=== PATIENT | female | born 1935 | race Caucasian/White ===

== ENCOUNTER 2017-06-06 23:28 | Inpatient (IN) ==
[2017-06-06] MEDS ORDERED: Albuterol 2.5 MG/3 ML NEBULIZER IH ONE (23:32)
[2017-06-06] MEDS ORDERED: methylPREDNISolone 125 MG/2 ML VIAL IVP ONE (23:32)
[2017-06-06] MEDS ORDERED: Ipratropium/Albuterol Neb 3 ML IH ONE (23:32)
--- NOTE | 2017-06-06 23:36 | Emergency Department Note ---
Disposition Clinical Impression: COPD exacerbation Pneumonia Qualifiers: Pneumonia type: due to unspecified organism Laterality: right Lung location: lower lobe of lung Qualified Code(s): J18.1 - Lobar pneumonia, unspecified organism Disposition: Admitted As Inpatient Condition: Good Time of Disposition: 00:43 SOB HPI - General Chief Complaint: ED Shortness of Breath/Dyspnea Stated Complaint: CANDY Time Seen by Provider: 06/06/17 23:30 Source: patient Mode of arrival: EMS Limitations: no limitations Nursing Notes Reviewed: Yes Vital Signs Reviewed: Yes - History of Present Illness 82-year-old white female presents via EMS with shortness of breath. She states she has been sick for "a couple weeks". She has had a cough productive of yellow sputum. She has had some wheezing. She states it became worse this evening. She has an albuterol inhaler that she uses. Her O2 saturation was 96 % on squad arrival at the scene. She was given albuterol nebulizer in route. She denies chest pain. She denies fever. No leg swelling or calf pain. Pt Subjective Complaint: shortness of breath, cough Onset (ago): week(s) ("A couple") Context: recent illness Severity: moderate Consistency/Duration: constant Improves with: bronchodilators Worsens with: coughing Known history of: COPD Associated symptoms: Reports: denies other symptoms Treatment prior to arrival: bronchodilator Cough present: Yes Cough Description: Involuntary Cough Frequency: Intermittent Sputum production: Yes Sputum Amount: Moderate Sputum Color: Yellow - Related Data Home oxygen amount: none Home Medications Medication Instructions Recorded Confirmed Albuterol Sulfate [Albuterol 2 puff IH QID PRN 06/06/17 06/06/17 Inhaler] Levothyroxine [Synthroid] 125 mcg PO DAILY 06/06/17 06/06/17 Amitriptyline [Elavil] 100 mg PO HS 06/07/17 06/07/17 Allergies Allergy/AdvReac Type Severity Reaction Status Date / Time Cortisone AdvReac Anaphylaxis Verified 06/06/17 23:31 All systems ED: reviewed and negative except as stated. Constitutional: Denies: fever, chills Eyes: Denies: eye discharge ENT ED: Denies: ear pain, throat pain Cardiovascular: Denies: chest pain, palpitations Respiratory: Reports: cough, dyspnea, wheezes, sputum production Gastrointestinal: Denies: abdominal pain, nausea, vomiting Genitourinary: Denies: urgency, dysuria, frequency Musculoskeletal: Denies: back pain Integumentary: Denies: rash Neurological: Denies: weakness, numbness, paresthesias Past Medical History - Past Medical History Attestation: Yes The following information was validated with the patient. Source: patient Medical history: Reports: COPD Surgical history: Reports: no surgical history Psychiatric history: Reports: no psych history - Social History Smoking Status: Current every day smoker Packs per day: 1 Alcohol use: Reports: none Drug use: Reports: none Physical Exam - General Limitations: no limitations General appearance: alert, in no apparent distress - Head Head exam: atraumatic, normocephalic - Eye Eye exam: Present: PERRL, EOMI. Absent: scleral icterus, conjunctival injection - ENT ENT exam: normal oropharynx, mucous membranes moist, TM's normal bilaterally - Neck Neck exam: Present: normal inspection, full ROM, trachea midline. Absent: tenderness, lymphadenopathy, thyromegaly - Respiratory Respiratory exam: Present: wheezes (Mild bilateral expiratory), prolonged expiratory phase, other (Scattered rhonchi bilaterally. Speaks in full sentences.). Absent: respiratory distress, accessory muscle use - Cardiovascular Cardiovascular exam: Present: regular rate, normal rhythm, normal heart sounds - Abdominal Exam Abdominal exam: Present: soft, Non-Tender, normal bowel sounds. Absent: organomegaly, mass - Extremities Exam Extremities exam: Present: normal inspection, full ROM, normal capillary refill. Absent: tenderness, pedal edema, calf tenderness - Neurological Exam Neurological exam: Present: alert, oriented X3. Absent: motor sensory deficit - Psychiatric Psychiatric exam: Present: normal affect, normal mood - Skin Skin exam: Present: warm, dry, intact, normal color. Absent: cyanosis, diaphoresis Course - Reevaluation(s) Reevaluation #1: Medically feels a little better after nebulizers. Her O2 saturations are around 89-90% on room air at this time. She was started on 2 L of oxygen. I have ordered blood cultures and IV Rocephin and azithromycin. She has some atelectasis versus infiltrate in her right base. She will be covered for pneumonia. Time: 00:33 Reevaluation #2: Discussed with Dr. Parrish. Accepts patient for admission to Telemetry. Patient and daughter agreeable with treatment plan. Time: 00:42 Vital Signs Temperature 98.0 F 06/06/17 23:33 Pulse Rate 87 06/06/17 23:33 Respiratory Rate 20 06/06/17 23:33 Blood Pressure 183/125 06/06/17 23:33 O2 Sat by Pulse Oximetry 92 06/06/17 23:33 Temperature 98.5 F 06/07/17 01:35 Pulse Rate 101 06/07/17 01:35 Respiratory Rate 20 06/07/17 01:35 Blood Pressure 162/80 06/07/17 01:35 O2 Sat by Pulse Oximetry 93 06/07/17 01:35 Oxygen Delivery Oxygen Delivery Nasal Cannula Shortness of Breath/Dyspnea - MDM Narrative Medical decision making narrative: She has some changes in the right lower lobe which likely represent pneumonia. Her O2 saturations are low at 89-90%, she has significant bronchospasm. She is improved with nebulizers. She was given Solu-Medrol. She would benefit from hospitalization for further treatment. This was discussed with the patient and her daughter. They are agreeable. I spoke with the hospitalist, Dr. Parrish, he has accepted the patient for admission. Blood cultures were drawn prior to giving azithromycin and Rocephin. Her lactic acid is not elevated. - Differential Diagnosis Likely: acute exacerbation of chronic obstructive airways disease, congestive heart failure, pneumonia, asthma with exacerbation, pneumothorax, arrhythmia - Lab Data Lab results reviewed: Yes I reviewed the patient's lab results. Result diagrams: 06/06/17 23:51 06/06/17 23:51 Lab Results 06/06/17 06/06/17 06/06/17 Range/Units 23:51 23:51 23:51 WBC 11.8 H (4.3-11.1) K/mcL RBC 4.08 (3.82-4.97) M/mcL Hgb 11.1 L (11.5-15.4) g/dL Hct 35.4 (35.3-44.9) % MCV 86.8 (83.0-100.0) fL MCH 27.2 L (28.0-33.3) pg MCHC 31.4 L (31.6-35.5) g/dL RDW 14.3 (11.5-14.5) % Plt Count 291 (140-400) K/mcL MPV 9.5 (9.4-12.4) fL Immature Gran % 0.5 (0-4) % Seg Neutrophils % 74.6 % Lymphocytes % 15.7 % Monocytes % 7.5 % Eosinophils % 1.3 % Basophils % 0.4 % Neutrophils # 8.8 (1.6-8.9) K/mcL Lymphocytes # 1.9 (0.6-4.6) K/mcL Monocytes # 0.9 (0.0-1.3) K/mcL Eosinophils # 0.2 (0.0-0.6) K/mcL Basophils # 0.1 (0.0-0.2) K/mcL Sodium 139 (136-145) mEq/L Potassium 3.8 (3.5-4.5) mEq/L Chloride 100 (98-109) mEq/L Carbon Dioxide 30 H (19-29) mEq/L BUN 17 (7-20) mg/dL Creatinine 0.96 (0.57-1.11) mg/dL Est GFR ( Amer) > 60 (> 60) Est GFR (Non-Af Amer) 56 L (> 60) BUN/Creatinine Ratio 18 (6-26) Glucose 139 H (70-99) mg/dL Calculated Osmolality 292 (280-300) Lactic Acid 1.1 (0.5-2.2) mmol/L Calcium 9.5 (8.6-10.8) mg/dL Total Bilirubin 0.3 (0.2-1.2) mg/dL AST 15 (5-34) Units/L ALT 13 (0-55) Units/L Alkaline Phosphatase 122 (38-126) Units/L Troponin I (0-0.03) ng/mL B-Natriuretic Peptide (0-100) pg/mL Serum Total Protein 6.6 (6.0-8.3) g/dL Albumin 3.1 L (3.5-5.0) g/dL Globulin 3.5 (2.4-3.5) g/dL Albumin/Globulin Ratio 0.9 L (1.1-2.2) 06/06/17 06/06/17 Range/Units 23:51 23:51 WBC (4.3-11.1) K/mcL RBC (3.82-4.97) M/mcL Hgb (11.5-15.4) g/dL Hct (35.3-44.9) % MCV (83.0-100.0) fL MCH (28.0-33.3) pg MCHC (31.6-35.5) g/dL RDW (11.5-14.5) % Plt Count (140-400) K/mcL MPV (9.4-12.4) fL Immature Gran % (0-4) % Seg Neutrophils % % Lymphocytes % % Monocytes % % Eosinophils % % Basophils % % Neutrophils # (1.6-8.9) K/mcL Lymphocytes # (0.6-4.6) K/mcL Monocytes # (0.0-1.3) K/mcL Eosinophils # (0.0-0.6) K/mcL Basophils # (0.0-0.2) K/mcL Sodium (136-145) mEq/L Potassium (3.5-4.5) mEq/L Chloride (98-109) mEq/L Carbon Dioxide (19-29) mEq/L BUN (7-20) mg/dL Creatinine (0.57-1.11) mg/dL Est GFR ( Amer) (> 60) Est GFR (Non-Af Amer) (> 60) BUN/Creatinine Ratio (6-26) Glucose (70-99) mg/dL Calculated Osmolality (280-300) Lactic Acid (0.5-2.2) mmol/L Calcium (8.6-10.8) mg/dL Total Bilirubin (0.2-1.2) mg/dL AST (5-34) Units/L ALT (0-55) Units/L Alkaline Phosphatase (38-126) Units/L Troponin I 0.01 (0-0.03) ng/mL B-Natriuretic Peptide 246 H (0-100) pg/mL Serum Total Protein (6.0-8.3) g/dL Albumin (3.5-5.0) g/dL Globulin (2.4-3.5) g/dL Albumin/Globulin Ratio (1.1-2.2) - Radiology Data Radiology results reviewed: Yes I reviewed the patient's radiology results. Impressions Chest X-Ray 06/06/17 23:32 IMPRESSION: 1. Right basilar atelectasis versus pneumonia. 2. Possible right paratracheal adenopathy. Routine contrast-enhanced chest CT is recommended for further evaluation. D/ / Price Valentine MD / Price Valentine MD Interpreting Provider: Price Valentine MD - EKG Data EKG attestation: Yes I reviewed and interpreted this EKG. EKG results narrative: Sinus rhythm, rate of 94, no acute ST-T wave changes. Rhythm strip shows sinus rhythm with a rate of 94, UT interval 191 ms, QRS 100 ms with no other ectopy as interpreted by me. No EKG available for comparison.
[2017-06-06 23:58] LABS: Basophils # 0.1 K/mcL (0.0-0.2); Basophils % 0.4 %; Eosinophils # 0.2 K/mcL (0.0-0.6); Eosinophils % 1.3 %; Hematocrit 35.4 % (35.3-44.9); Hemoglobin 11.1 g/dL (11.5-15.4); Immature Granulocytes % 0.5 % (0-4); Lymphocytes # 1.9 K/mcL (0.6-4.6); Lymphocytes % 15.7 %; Mean Corpuscular HGB Conc 31.4 g/dL (31.6-35.5); Mean Corpuscular Hemoglobin 27.2 pg (28.0-33.3); Mean Corpuscular Volume 86.8 fL (83.0-100.0); Mean Platelet Volume 9.5 fL (9.4-12.4); Monocytes # 0.9 K/mcL (0.0-1.3); Monocytes % 7.5 %; Neutrophils # 8.8 K/mcL (1.6-8.9); Platelet Count 291 K/mcL (140-400); Red Blood Count 4.08 M/mcL (3.82-4.97); Red Cell Distribution Width 14.3 % (11.5-14.5); Segmented Neutrophils % 74.6 %
[2017-06-07 00:17] LABS: Alanine Aminotransferase 13 Units/L (0-55); Albumin 3.1 g/dL (3.5-5.0); Albumin/Globulin Ratio 0.9 (1.1-2.2); Alkaline Phosphatase 122 Units/L (38-126); Aspartate Amino Transferase 15 Units/L (5-34); BUN/Creatinine Ratio 18 (6-26); Bilirubin,Total 0.3 mg/dL (0.2-1.2); Blood Urea Nitrogen 17 mg/dL (7-20); Calcium 9.5 mg/dL (8.6-10.8); Carbon Dioxide 30 mEq/L (19-29); Chloride 100 mEq/L (98-109); Globulin 3.5 g/dL (2.4-3.5); Glucose 139 mg/dL (70-99); Osmolality,Calculated 292 (280-300); Potassium 3.8 mEq/L (3.5-4.5); Sodium 139 mEq/L (136-145); Total Protein 6.6 g/dL (6.0-8.3); eGFR For African Americans > 60 (> 60); eGFR For Non-African Americans 56 (> 60)
[2017-06-07] MEDS ORDERED: Azithromycin 500 MG in D5% in Water 250 ML IVPB ONE (00:29)
[2017-06-07] MEDS ORDERED: Acetaminophen 325 MG TABLET PO PRN (01:23)
[2017-06-07] MEDS ORDERED: Ondansetron ODT 4 MG TAB.RAPDIS SL PRN (01:23)
[2017-06-07] MEDS ORDERED: Naloxone 0.4 MG/ML INJ IVP PRN (01:23)
[2017-06-07] MEDS: Ipratropium/Albuterol Neb 3 ML IH SCH ×3 (02:48→12:50)
[2017-06-07] MEDS: MethylPREDNISolone 40 MG/ML VIAL IVP SCH ×3 (04:49→17:28)
[2017-06-07] MEDS: *HR* Enoxaparin 30 MG/0.3 ML SYRINGE SQ SCH (05:15)
[2017-06-07] MEDS ORDERED: Ibuprofen 800 MG TABLET PO ONE (12:47)
--- NOTE | 2017-06-07 15:55 | Internal Med History&Physical ---
Date of Encounter: 06/07/17 Time of Encounter: 15:20 Assessment and Plan (1) Pneumonia Current visit: Yes Status: Acute She has been started on Rocephin and Zithromax. Lactobacillus will be added. Chest CT will be ordered for further evaluation. Qualifiers: Pneumonia type: due to unspecified organism Laterality: right Lung location: lower lobe of lung Qualified Code(s): J18.1 - Lobar pneumonia, unspecified organism (2) Azotemia Current visit: Yes Status: Acute Duration unknown. Will hold NSAIDs and monitor renal indices. (3) Anemia Current visit: Yes Status: Acute We will hold NSAIDs. We will order anemia testing in a.m. Qualifiers: Anemia type: unspecified type Qualified Code(s): D64.9 - Anemia, unspecified (4) Hypothyroidism Current visit: Yes Status: Chronic We will check TSH in a.m. Qualifiers: Hypothyroidism type: unspecified Qualified Code(s): E03.9 - Hypothyroidism , unspecified (5) Weight loss Current visit: Yes Status: Acute We will check TSH and ordered chest CT. (6) COPD exacerbation Current visit: Yes Status: Acute We will start Spiriva and Symbicort. Continue pneumonia treatment. Will order chest CT. Internal Medicine - H&P: HPI Chief complaint: Dyspnea Admitted From: Home Plans for Post Hospital Care: Home History of present illness: Ms. Barriga is a 82 year old female who came to emergency room stating she had two-week history of increasing dyspnea. She reports cough with yellow sputum. There has been hemoptysis noted at times. When she was not improving she decided to come to emergency room. She was evaluated and felt to have exacerbation of COPD and was admitted to [facility] floor for ongoing care needs. Her respiratory history is significant for having smoked since age 15 up to 4 packs per day. She has not had PFTs has not been diagnosed with chronic lung disease. She does not use home oxygen and has not been tested for sleep apnea. Past Med Surg Social Fam HX - Past Medical History Medical history: COPD Psychiatric history: no psych history - Past Surgical History Surgical History: no surgical history - Social History Smoking Status: Current every day smoker Packs per day: 1 Smokeless Tobacco Status: No Alcohol use: none Drug use: none Internal Medicine - H&P: Meds Albuterol Sulfate [Albuterol Inhaler] 2 puff IH QID PRN 06/06/17 [History] Levothyroxine [Synthroid] 125 mcg PO DAILY 06/06/17 [History] Amitriptyline [Elavil] 100 mg PO HS 06/07/17 [History] 3 Allergy/AdvReac Type Severity Reaction Status Date / Time Cortisone AdvReac Anaphylaxis Verified 06/06/17 23:31 All Systems PM: A 10-system review of systems was performed and is negative for pertinent findings except as documented above in the HPI. Review of systems: Gen.: She states her weight has decreased approximately 20 pounds in the past 6 months, unintentional Cardiovascular: She has history of hypertension but no known [place] heart failure angina DVT or pulmonary embolus. She reports she had a "blood clot in her ankle " following trauma several years ago. Respiratory: As per history of present illness GI: She denies disorders of her liver gallbladder or exocrine pancreas : She has had intermittent hematuria over the last 3 years. She denies chronic kidney disease other kidney or bladder disorders Neurologic: She had a pituitary tumor over 30 years ago without treatment. She had bilateral cataract surgery approximately one week ago. She has left macular degeneration. She denies large distribution strokes or seizures. Endocrine: She has hypothyroidism denies diabetes or hyperlipidemia Hematology/oncology: She was unaware that she had mild anemia on emergency room labs. She reports taking approximately 12 OTC Advil daily for the past few days for her right arm pain. She denies internal malignancies Psychiatric: She has depression but no significant anxiety other mental health issues. [place] skeletal: She reports pain in her right arm from her elbow to her shoulder. She has been using OTC Advil as per above. She denies gout or other bone joint or muscle disorders. - Constitutional Vitals: Temp Pulse Resp BP Pulse Ox 98.5 F 94 18 150/76 92 06/07/17 07:42 06/07/17 07:42 06/07/17 12:53 06/07/17 07:42 06/07/17 12:53 Exam: Gen.: She is a well-developed well-nourished female who appears in no significant distress HEENT: Head is atraumatic and normocephalic. Eyes: EOMI. There is no scleral icterus. Mouth: Mucosa is moist. Neck: Supple and nontender. There is no thyromegaly or adenopathy noted. Heart: Regular with occasional ectopic beat heard. No murmurs or gallops are heard. Lungs: No wheezes or crackles are heard. She has diminished breath sounds diffusely. There is no egophony Abdomen: Soft and nontender. No masses or guarding are noted. Extremities: There is no cyanosis edema clubbing noted. Dorsalis pedis and posttibial pulses are 1-2 over 2 bilaterally. Neurologic: Mental status: She is talkative and a good historian. Cranial nerves: Smile is symmetric. Forehead wrinkles bilaterally. Tongue protrudes midline. EOMI. Motor: There is no pronator drift. Cerebellar: Finger to nose is intact bilaterally. Skin: Warm and dry Internal Med - H&P Results - Labs CBC & Chem 7: 06/06/17 23:51 06/06/17 23:51
[2017-06-07] MEDS: Metoprolol XL (24 HR) Succ 25 MG TAB.ER.24H PO SCH (17:30)
[2017-06-07] MEDS ORDERED: Acetaminophen 325 MG TABLET PO SCH (18:00)
[2017-06-07] MEDS: Budesonide/Formoterol 160/4.5 MDI IH SCH (21:20)
[2017-06-07 21:35] LABS: Bilirubin,Urine Small (Negative); Blood,Urine Large (Negative); Clarity,Urine Cloudy (Clear); Color,Urine Amber (Yellow); Glucose,Urine (UA) Normal (Normal); Ketones,Urine Trace mg/dL (Negative); Leukocyte Esterase,Urine Negative (Negative); Nitrite,Urine Negative (Negative); Protein,Urine 100 mg/dL (Neg-Trace); Urobilinogen,Urine Normal (Normal)
[2017-06-07] MEDS: Lactobacillus 1 EACH CAP.SPRINK PO SCH (21:41)
[2017-06-07] MEDS: traMADol 50 MG TABLET PO PRN (23:58)
[2017-06-08] MEDS: Azithromycin 500 MG in D5% in Water 250 ML IVPB SCH (00:58)
[2017-06-08] MEDS: MethylPREDNISolone 40 MG/ML VIAL IVP SCH ×3 (00:58→18:12)
[2017-06-08] MEDS: *HR* Enoxaparin 30 MG/0.3 ML SYRINGE SQ SCH (05:48)
[2017-06-08 06:47] LABS: Hematocrit 35.6 % (35.3-44.9); Hemoglobin 10.8 g/dL (11.5-15.4); Immature Granulocytes % 0.3 % (0-4); Lymphocytes # 0.8 K/mcL (0.6-4.6); Lymphocytes % 6.8 %; Mean Corpuscular HGB Conc 30.3 g/dL (31.6-35.5); Mean Corpuscular Hemoglobin 26.9 pg (28.0-33.3); Mean Corpuscular Volume 88.8 fL (83.0-100.0); Mean Platelet Volume 10.3 fL (9.4-12.4); Monocytes # 0.2 K/mcL (0.0-1.3); Neutrophils # 10.2 K/mcL (1.6-8.9); Platelet Count 311 K/mcL (140-400); Red Blood Count 4.01 M/mcL (3.82-4.97); Red Cell Distribution Width 14.2 % (11.5-14.5); Segmented Neutrophils % 90.9 %
[2017-06-08] MEDS: Budesonide/Formoterol 160/4.5 MDI IH SCH ×2 (09:17→21:51)
[2017-06-08] MEDS: Tiotropium 18 MCG inhalation IH SCH (09:17)
[2017-06-08 10:39] LABS: % Iron Saturation 7 % (15-50); Iron 26 mcg/dL (50-170); Transferrin 250 mg/dL (180-382)
[2017-06-08] MEDS: Lactobacillus 1 EACH CAP.SPRINK PO SCH ×2 (10:43→22:26)
[2017-06-08] MEDS: Metoprolol XL (24 HR) Succ 25 MG TAB.ER.24H PO SCH (10:50)
[2017-06-08 11:01] LABS: Ferritin 28 ng/ml (5-204)
[2017-06-08 11:12] LABS: Folate 11.4 ng/mL (7.0-31.4)
--- NOTE | 2017-06-08 12:02 | Electrocardiograph Report ---
[address] [address] Test Date: 2017-06-06 Pat Name: Nisha Barriga Department: [id number] Room: [facility] Gender: F Bridge Repairer: Waylon : 1935 Requested By: Remi Anderson Order Number: [id number] Reading MD: Elijah Santizo MD Measurements Intervals [place] Rate: 94 P: 87 MO: 191 QRS: 28 QRSD: 100 T: 50 QT: 345 QTc: 396 Interpretive Statements SINUS RHYTHM Poor R wave progression Electronically Signed On 06-08-2017 12:00:24 EDT by Elijah Santizo MD
--- NOTE | 2017-06-08 12:18 | Internal Med Progress Note ---
Date of Encounter: 06/08/17 Time of Encounter: 09:20 - Assessment and plan (1) Pneumonia Current Visit: Yes Status: Acute Assessment and plan: June 08. Continue Rocephin and Zithromax with lactobacillus. Qualifiers: Pneumonia type: due to unspecified organism Laterality: right Lung location: lower lobe of lung Qualified Code(s): J18.1 - Lobar pneumonia, unspecified organism (2) Mass of right lung Current Visit: Yes Status: Acute Assessment and plan: June 08. I discussed at length with her and her family the findings of the CT showing a right lung mass with probable extension/erosion into T3. There is also possible esophageal encroachment. She adamantly refused to consider transfer to a gift basket packer/oncologist stating she would not have surgery and would not take chemotherapy etc. for treatment. She stated she was content to and did not want to be a burden to her family. Declined consideration for hospice. (3) Azotemia Current Visit: Yes Status: Acute Assessment and plan: June 08. Duration unknown. Will remain off NSAIDs. Recheck labs in a.m. (4) Anemia Current Visit: Yes Status: Acute Assessment and plan: June 08. Anemia testing consistent with iron and folic acid deficiency. Will order supplements. Qualifiers: Anemia type: unspecified type Qualified Code(s): D64.9 - Anemia, unspecified (5) Hypothyroidism Current Visit: Yes Status: Chronic Assessment and plan: June 08. TSH was slightly suppressed. We will decrease dose of Synthroid to 100 g daily. Qualifiers: Hypothyroidism type: unspecified Qualified Code(s): E03.9 - Hypothyroidism , unspecified (6) Weight loss Current Visit: Yes Status: Acute Assessment and plan: June 08. We will decreased TSH as per above. 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 (7) COPD exacerbation Current Visit: Yes Status: Acute Assessment and plan: June 08. Continue Spiriva, Symbicort and pneumonia treatment. - Subjective Interval history: June 08. She has no new complaints. She is still dyspneic and has pain in her back and right arm. - Constitutional Vitals: Temp Pulse Resp BP Pulse Ox 98.8 F 76 17 154/86 97 06/08/17 06:49 06/08/17 06:49 06/08/17 09:31 06/08/17 06:49 06/08/17 09:31 Exam: She is sitting on the side of the bed wearing oxygen. She appears slightly dyspneic at rest and more dyspneic when speaking. I reviewed her medications labs and CT report with her and her daughter. Internal Medicine: Result - Labs CBC & Chem 7: 06/08/17 05:18 06/06/17 23:51 Labs: Short CBC 06/08/17 Range/Units 05:18 WBC 11.2 H (4.3-11.1) K/mcL Hgb 10.8 L (11.5-15.4) g/dL Hct 35.6 (35.3-44.9) % Plt Count 311 (140-400) K/mcL Neutrophils # 10.2 H (1.6-8.9) K/mcL Urine 06/07/17 Range/Units 19:30 Urine Color Janell A (Yellow) Urine Clarity Cloudy A (Clear) Urine pH 6.0 (5.0-8.0) pH Units Ur Specific [place] 1.020 (1.010-1.025) Urine Protein 100 H (Neg-Trace) mg/dL Urine Glucose (UA) Normal (Normal) mg/dL - Impressions Impressions Chest CT 06/07/17 15:47 IMPRESSION: Large cavitary right upper lobe mass with invasion of the posterior mediastinum and T3 vertebral body. Tiny nodules in the left upper lobe almost certainly represent granulomas. Borderline sized precarinal lymph node D/ / Alfredo Bob MD / Alfredo Bob MD Interpreting Provider: Alfredo Bob MD - VTE Documentation of Mechanical Device: Intermittent pneumatic compression device Consult Discharge Plan - Plan Referrals: Brian Richards, GENARO [Primary Care Provider] - 1 week
[2017-06-08] MEDS: traMADol 50 MG TABLET PO PRN (12:57)
[2017-06-08] MEDS: *HR* OxyCODONE/APAP 5/325 TABLET PO PRN (22:26)
[2017-06-09] MEDS: Azithromycin 500 MG in D5% in Water 250 ML IVPB SCH (03:01)
[2017-06-09] MEDS: MethylPREDNISolone 40 MG/ML VIAL IVP SCH ×2 (03:01→11:27)
[2017-06-09 05:46] LABS: Basophils % 0.1 %; Hematocrit 33.3 % (35.3-44.9); Hemoglobin 10.3 g/dL (11.5-15.4); Immature Granulocytes % 0.7 % (0-4); Lymphocytes # 1.1 K/mcL (0.6-4.6); Lymphocytes % 7.9 %; Mean Corpuscular HGB Conc 30.9 g/dL (31.6-35.5); Mean Corpuscular Hemoglobin 27.2 pg (28.0-33.3); Mean Corpuscular Volume 87.9 fL (83.0-100.0); Mean Platelet Volume 9.8 fL (9.4-12.4); Monocytes # 0.8 K/mcL (0.0-1.3); Monocytes % 5.8 %; Platelet Count 332 K/mcL (140-400); Red Blood Count 3.79 M/mcL (3.82-4.97); Segmented Neutrophils % 85.5 %
[2017-06-09 05:48] LABS: Neutrophils # 11.5 K/mcL (1.6-8.9)
[2017-06-09 05:59] LABS: BUN/Creatinine Ratio 23 (6-26); Blood Urea Nitrogen 19 mg/dL (7-20); Carbon Dioxide 31 mEq/L (19-29); Chloride 99 mEq/L (98-109); Glucose 230 mg/dL (70-99); Osmolality,Calculated 294 (280-300); Potassium 4.4 mEq/L (3.5-4.5); Sodium 137 mEq/L (136-145); eGFR For African Americans > 60 (> 60); eGFR For Non-African Americans > 60 (> 60)
[2017-06-09] MEDS: Tiotropium 18 MCG inhalation IH SCH (07:39)
[2017-06-09] MEDS: Ascorbic Acid 500 MG TABLET PO SCH ×2 (08:54→09:15)
[2017-06-09] MEDS: Lactobacillus 1 EACH CAP.SPRINK PO SCH ×2 (08:55→20:15)
[2017-06-09] MEDS: Metoprolol XL (24 HR) Succ 25 MG TAB.ER.24H PO SCH (08:55)
[2017-06-09] MEDS: *HR* Enoxaparin 30 MG/0.3 ML SYRINGE SQ SCH (08:59)
[2017-06-09] MEDS: Budesonide/Formoterol 160/4.5 MDI IH SCH ×2 (10:45→20:01)
--- NOTE | 2017-06-09 12:32 | Internal Med Progress Note ---
Date of Encounter: 06/09/17 Time of Encounter: 12:25 - Assessment and plan (1) Pneumonia Current Visit: Yes Status: Acute Assessment and plan: June 08. Continue Rocephin and Zithromax with lactobacillus. Qualifiers: Pneumonia type: due to unspecified organism Laterality: right Lung location: lower lobe of lung Qualified Code(s): J18.1 - Lobar pneumonia, unspecified organism (2) Mass of right lung Current Visit: Yes Status: Acute Assessment and plan: June 08. I discussed at length with her and her family the findings of the CT showing a right lung mass with probable extension/erosion into T3. There is also possible esophageal encroachment. She adamantly refused to consider transfer to a physiatrist/oncologist stating she would not have surgery and would not take chemotherapy etc. for treatment. She stated she was content to and did not want to be a burden to her family. Declined consideration for hospice. (3) Azotemia Current Visit: Yes Status: Acute Assessment and plan: June 08. Duration unknown. Will remain off NSAIDs. Recheck labs in a.m. June 09. Resolved. Continue to monitor labs as needed. (4) Anemia Current Visit: Yes Status: Acute Assessment and plan: June 08. Anemia testing consistent with iron and folic acid deficiency. Will order supplements. June 09. Continue iron with vitamin C and folic acid. Qualifiers: Anemia type: unspecified type Qualified Code(s): D64.9 - Anemia, unspecified (5) Hypothyroidism Current Visit: Yes Status: Chronic Assessment and plan: June 08. TSH was slightly suppressed. We will decrease dose of Synthroid to 100 g daily. Qualifiers: Hypothyroidism type: unspecified Qualified Code(s): E03.9 - Hypothyroidism , unspecified (6) Weight loss Current Visit: Yes Status: Acute Assessment and plan: June 08. We will decrease TSH as per above. 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 (7) COPD exacerbation Current Visit: Yes Status: Acute Assessment and plan: June 08. Continue Spiriva, Symbicort and pneumonia treatment. June 09. We will discontinue Solu-Medrol. Continue other treatment as at present. - Subjective Interval history: June 08. She has no new complaints. She is still dyspneic and has pain in her back and right arm. June 09. She has no new complaints and feels better. - Constitutional Vitals: Temp Pulse Resp BP Pulse Ox 98.6 F 79 18 159/79 93 06/09/17 10:59 06/09/17 10:59 06/09/17 10:59 06/09/17 10:59 06/09/17 10:59 Exam: She is resting comfortably in bed and appears less dyspneic. Her lungs showed diminished breath sounds but less wheezing. I reviewed her medications and lab results. Internal Medicine: Result - Labs CBC & Chem 7: 06/09/17 05:15 06/09/17 05:15 Labs: Short CBC 06/09/17 Range/Units 05:15 WBC 13.4 H (4.3-11.1) K/mcL Hgb 10.3 L (11.5-15.4) g/dL Hct 33.3 L (35.3-44.9) % Plt Count 332 (140-400) K/mcL Neutrophils # 11.5 H (1.6-8.9) K/mcL BMP 06/09/17 05:15 Sodium 137 Potassium 4.4 Chloride 99 Carbon Dioxide 31 H BUN 19 Creatinine 0.81 Glucose 230 H Calcium 9.0 - VTE Documentation of Mechanical Device: Intermittent pneumatic compression device Consult Discharge Plan - Plan Referrals: Brian Richards CNP [Primary Care Provider] - 1 week
[2017-06-09] MEDS ORDERED: ALPRAZolam 0.25 MG TABLET PO PRN (12:34)
[2017-06-09] MEDS: *HR* OxyCODONE/APAP 5/325 TABLET PO PRN ×2 (12:59→20:14)
[2017-06-10] MEDS: Azithromycin 500 MG in D5% in Water 250 ML IVPB SCH (01:16)
[2017-06-10] MEDS: *HR* Enoxaparin 30 MG/0.3 ML SYRINGE SQ SCH (06:07)
[2017-06-10] MEDS: Ascorbic Acid 500 MG TABLET PO SCH ×2 (08:30→08:31)
[2017-06-10] MEDS: Tiotropium 18 MCG inhalation IH SCH (08:35)
[2017-06-10] MEDS: Lactobacillus 1 EACH CAP.SPRINK PO SCH ×2 (08:37→19:57)
[2017-06-10] MEDS: Metoprolol XL (24 HR) Succ 25 MG TAB.ER.24H PO SCH (08:37)
[2017-06-10] MEDS: Budesonide/Formoterol 160/4.5 MDI IH SCH ×2 (10:23→21:38)
[2017-06-10] MEDS: *HR* OxyCODONE/APAP 5/325 TABLET PO PRN ×2 (12:46→19:58)
--- NOTE | 2017-06-10 15:55 | Internal Med Progress Note ---
Date of Encounter: 06/10/17 Time of Encounter: 15:40 - Assessment and plan (1) Pneumonia Current Visit: Yes Status: Acute Assessment and plan: June 08. Continue Rocephin and Zithromax with lactobacillus. Qualifiers: Pneumonia type: due to unspecified organism Laterality: right Lung location: lower lobe of lung Qualified Code(s): J18.1 - Lobar pneumonia, unspecified organism (2) Mass of right lung Current Visit: Yes Status: Acute Assessment and plan: June 08. I discussed at length with her and her family the findings of the CT showing a right lung mass with probable extension/erosion into T3. There is also possible esophageal encroachment. She adamantly refused to consider transfer to a mixer tender/oncologist stating she would not have surgery and would not take chemotherapy etc. for treatment. She stated she was content to and did not want to be a burden to her family. Declined consideration for hospice. (3) Azotemia Current Visit: Yes Status: Acute Assessment and plan: June 08. Duration unknown. Will remain off NSAIDs. Recheck labs in a.m. June 09. Resolved. Continue to monitor labs as needed. (4) Anemia Current Visit: Yes Status: Acute Assessment and plan: June 08. Anemia testing consistent with iron and folic acid deficiency. Will order supplements. June 09. Continue iron with vitamin C and folic acid. June 10. Will recheck labs in a.m. Qualifiers: Anemia type: unspecified type Qualified Code(s): D64.9 - Anemia, unspecified (5) Hypothyroidism Current Visit: Yes Status: Chronic Assessment and plan: June 08. TSH was slightly suppressed. We will decrease dose of Synthroid to 100 g daily. Qualifiers: Hypothyroidism type: unspecified Qualified Code(s): E03.9 - Hypothyroidism , unspecified (6) Weight loss Current Visit: Yes Status: Acute Assessment and plan: June 08. We will decrease TSH as per above. 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 (7) COPD exacerbation Current Visit: Yes Status: Acute Assessment and plan: June 08. Continue Spiriva, Symbicort and pneumonia treatment. June 09. We will discontinue Solu-Medrol. Continue other treatment as at present. - Subjective Interval history: June 08. She has no new complaints. She is still dyspneic and has pain in her back and right arm. June 09. She has no new complaints and feels better. June 10. She has no new complaints. - Constitutional Vitals: Temp Pulse Resp BP Pulse Ox 99.0 F 83 14 136/73 95 06/10/17 10:00 06/10/17 11:15 06/10/17 11:15 06/10/17 11:15 06/10/17 11:15 Exam: She is resting comfortably in bed. Affect is bright and cheerful. Lungs show scattered rhonchi. Heart is regular without murmurs gallops or ectopics. Extremities show trace pitting edema. I reviewed her medications and lab results. I discussed her case with the licensed clinical social worker Internal Medicine: Result - Labs CBC & Chem 7: 06/09/17 05:15 06/09/17 05:15 - VTE Documentation of Mechanical Device: Intermittent pneumatic compression device Consult Discharge Plan - Plan Referrals: Brian Richards, GENARO [Primary Care Provider] - 1 week
[2017-06-10] MEDS: Cefuroxime PO 250 MG TABLET PO SCH (19:58)
[2017-06-10] MEDS: Azithromycin 250 MG TABLET PO SCH (19:58)
[2017-06-11 05:33] LABS: Basophils % 0.1 %; Eosinophils # 0.1 K/mcL (0.0-0.6); Eosinophils % 0.6 %; Hematocrit 37.9 % (35.3-44.9); Hemoglobin 11.7 g/dL (11.5-15.4); Immature Granulocytes % 0.5 % (0-4); Lymphocytes % 14.1 %; Mean Corpuscular HGB Conc 30.9 g/dL (31.6-35.5); Mean Corpuscular Hemoglobin 26.9 pg (28.0-33.3); Mean Corpuscular Volume 87.1 fL (83.0-100.0); Monocytes # 0.9 K/mcL (0.0-1.3); Monocytes % 6.5 %; Neutrophils # 10.9 K/mcL (1.6-8.9); Platelet Count 339 K/mcL (140-400); Red Blood Count 4.35 M/mcL (3.82-4.97); Red Cell Distribution Width 14.4 % (11.5-14.5); Segmented Neutrophils % 78.2 %
[2017-06-11 05:50] LABS: BUN/Creatinine Ratio 21 (6-26); Blood Urea Nitrogen 17 mg/dL (7-20); Calcium 9.3 mg/dL (8.6-10.8); Carbon Dioxide 35 mEq/L (19-29); Chloride 97 mEq/L (98-109); Glucose 159 mg/dL (70-99); Osmolality,Calculated 295 (280-300); Sodium 140 mEq/L (136-145); eGFR For African Americans > 60 (> 60); eGFR For Non-African Americans > 60 (> 60)
[2017-06-11] MEDS ORDERED: *HR* Enoxaparin 40 MG/0.4 ML SYRINGE SQ SCH (06:00)
[2017-06-11] MEDS: Cefuroxime PO 250 MG TABLET PO SCH ×2 (06:07→17:43)
[2017-06-11 07:27] VITALS: BP 148/73
[2017-06-11] MEDS: Lactobacillus 1 EACH CAP.SPRINK PO SCH (08:52)
[2017-06-11] MEDS: Ascorbic Acid 500 MG TABLET PO SCH (08:52)
[2017-06-11] MEDS: Azithromycin 250 MG TABLET PO SCH (08:52)
[2017-06-11] MEDS: Metoprolol XL (24 HR) Succ 25 MG TAB.ER.24H PO SCH (08:57)
[2017-06-11] MEDS: Budesonide/Formoterol 160/4.5 MDI IH SCH (10:18)
[2017-06-11] MEDS: Tiotropium 18 MCG inhalation IH SCH (10:19)
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
--- NOTE | 2017-06-11 12:03 | Physician Discharge Referral ---
Home Health/Hosp Referral Info Transfer to: Home Health Attending Provider: Francois Provider in Charge Post Discharge: PCP (Brian Richards CNP) - Diagnosis (1) Pneumonia Priority: Primary Status: Acute (2) Mass of right lung Priority: Secondary Status: Acute (3) Azotemia Priority: Secondary Status: Resolved (4) Anemia Priority: Secondary Status: Acute (5) Hypothyroidism Priority: Secondary Status: Chronic (6) Weight loss Priority: Secondary Status: Acute (7) COPD exacerbation Priority: Secondary Status: Acute - Respiratory Orders Oxygen / L per min (O2 at 2 L/m by nasal cannula to keep sat greater than 90%.) Smoking Cessation: Smoking cessation has been advised. For more information, call the [employer] Tobacco Quit Line at 9-994-NSGB-NOW. - Diet/Nutrition Diet/Nutrition Orders: Regular - Activity Activity Orders: Ambulate - Services Needed Following services are medically necessary services: Nursing, Home Health Aide, Physical Therapy, Occupational Therapy - Transfer Medications Prescriptions: Albuterol Neb [Proventil Neb] 2.5 mg IH Q4HR #20 vial.neb OxyCODONE/APAP 5/325 [Percocet 5/325 MG] 1 each PO Q4HR PRN #20 tablet PRN Reason: Pain Cefuroxime PO [Ceftin] 500 mg PO Q12HR #10 tablet Ascorbic Acid [Vitamin C] 500 mg PO DAILY #30 tablet Azithromycin [Zithromax] 250 mg PO DAILY #5 tablet Budesonide/Formoterol 160/4.5 [Symbicort 160/4.5] 2 puff IH BIDR #1 inhaler Ferrous Sulfate 325 mg PO DAILY #30 tablet Lactobacillus [Culturelle] 1 each PO BID #10 cap.sprink Levothyroxine [Synthroid] 100 mcg PO 0630 #30 tablet Metoprolol XL (24 HR) Succ [Toprol XL] 25 mg PO DAILY #30 tab.er.24h Tiotropium [Spiriva] 18 mcg IH DAILY@0700 #30 inh Home Medications: Albuterol Sulfate [Albuterol Inhaler] 2 puff IH QID PRN 06/06/17 [History] Amitriptyline [Elavil] 100 mg PO HS 06/07/17 [History] Albuterol Neb [Proventil Neb] 2.5 mg IH Q4HR #20 vial.neb 10/18/17 [Rx] Ascorbic Acid [Vitamin C] 500 mg PO DAILY #30 tablet 06/11/17 [Rx] Azithromycin [Zithromax] 250 mg PO DAILY #5 tablet 06/11/17 [Rx] Budesonide/Formoterol 160/4.5 [Symbicort 160/4.5] 2 puff IH BIDR #1 inhaler [Rx] Cefuroxime PO [Ceftin] 500 mg PO Q12HR #10 tablet 06/11/17 [Rx] Ferrous Sulfate 325 mg PO DAILY #30 tablet 06/11/17 [Rx] Lactobacillus [Culturelle] 1 each PO BID #10 cap.sprink 06/11/17 [Rx] Levothyroxine [Synthroid] 100 mcg PO 0630 #30 tablet 06/11/17 [Rx] Metoprolol XL (24 HR) Succ [Toprol XL] 25 mg PO DAILY #30 tab.er.24h 06/11/17 [ Rx] OxyCODONE/APAP 5/325 [Percocet 5/325 MG] 1 each PO Q4HR PRN #20 tablet 06/11/17 [Rx] Tiotropium [Spiriva] 18 mcg IH DAILY@0700 #30 inh 06/11/17 [Rx] Allergies/Adverse Reactions: 3 Allergy/AdvReac Type Severity Reaction Status Date / Time Cortisone AdvReac Anaphylaxis Verified 06/06/17 23:31 Certification: Further, I certify that my clinical findings support that this patient is homebound (i.e. absences from home require considerable and taxing effort and are for medical reasons or jehovah's witness services or infrequently or short duration when for other reasons) because: Homebound Reason: Leaving home requires considerable and taxing effort due to condition (End-stage COPD, lung cancer (presumed)) Attestation: My signature below is to certify that this patient is under my care and that I, or nurse practitioner, or a physician's plastic surgery assistant working with me, has a face-to -face encounter with this patient.
[2017-06-11] MEDS: *HR* OxyCODONE/APAP 5/325 TABLET PO PRN ×2 (12:50→17:43)
== END 2017-06-11 17:47 | disposition home health service (06) | DRG 190 ==
LOC: EMEROOPIK 23:28 → INPPIK 23:28
PROVIDERS: ADMIT Internal Medicine; ATTEND Internal Medicine